=== PATIENT | female | born 1945 ===

== ENCOUNTER 2021-08-21 14:05 | Emergency (ER) | payer OTHER ==
--- OUTSIDE RECORDS SUMMARY | 2021-08-21 14:07 | XMS REPORT | Continuity of Care Document ---
:1945 Author Organization [facility] t Address [address] [place] [address] Care Team Providers Name Role Phone Quique MORA JR Primary Care Physician Unavailable Quique Fay Attending Clinician Unavailable Aram Iniguez Attending Clinician Unavailable JENNIFER Attending Clinician Unavailable Mehran_BEV Attending Clinician Unavailable Chevy TAFOYA Attending Clinician Unavailable Aram Iniguez Admitting Clinician Unavailable Jessica Admitting Clinician Unavailable Quique Fay Admitting Clinician Unavailable Payers Payer Name Policy Type Policy Number Effective Date Expiration Date [facility] [id number] [facility] (MEDICARE REPLACEMENT/ADVANTAGE - PPO) Problems This patient has no known problems. Allergies, Adverse Reactions, Alerts Allergy Allergy Status Severity Reaction(s) Onset Inactive Treating Comm ents Source Name Type Date Date Clinician No Known DA Active U 2020-0 [facility]ie 04-08 Clear s 00:00: Morales 00 [facility] No Known DA Active U 2020-0 [facility] Allergie 04-08 [facility] s 00:00: d 00 [facility] NO KNOWN Drug Active Univers ALLERGIE Class ity of S [facility] Medications This patient has no known medications. Procedures This patient has no known procedures. Encounters Start End Encounter Admission Attending Care Care Encounter Source Date/Time Date/Time Type Type Clinicians Facility Department ID 2021-03-25 Inpatient EL Fay, HCAMN 3DAY [id number] [facility] 11:30:[id number] [facility] 2019-04-12 Inpatient EL Hira, HCAMN [facility] [id number] [facility] 10:30:[address] [facility] 2019-04-08 Inpatient Hira, HCAMN HCAMN [id number] [facility] 10:30:[id number] [facility] 2021-09-10 2021-09-10 Outpatient Henry RODRIGUEZ [facility] [id number] Univers 08:30:00 08:30:00 DESMOND Bangura705 [facility] 2021-07-26 2021-07-26 Outpatient Moore_W_AH VFP VFP [id number] [facility] 04:15:00 04:15:00 [id number] [facility] 2021-07-03 2021-07-03 Outpatient Moore_W_AH VFP VFP [id number] [facility]202 [facility] 12:31:00 12:31:00 [id number] [facility] Practic e 2021-03-26 2021-03-28 Inpatient EL Fay, HCAMN 3DAY [id number] [facility] 06:58:00 12:12:00 Tobin [id number] [facility] 2021-03-26 2021-03-28 Inpatient EL Fay, HCAMN 3DAY [id number] [facility] 06:58:00 12:12:00 Tobin Ybarra [facility] 2021-03-27 2021-03-27 Outpatient Fay, HCACL LABO [id number] [facility] 01:06:00 01:06:00 Tobin [id number] [facility] 2020-05-08 2020-05-08 Outpatient Henry TAFOYA [facility] [id number] Univers 11:50:00 11:50:00 CATERINA [facility] 2020-04-17 2020-04-17 Outpatient Henry TAFOYA [facility] [id number] Univers 11:00:00 14:07:07 CATERINA [facility] 2020-04-17 2020-04-17 Outpatient [facility] [id number] Univers 11:00:00 11:00:[id number] [facility] Results Test Description Test Time Test Comments Results Result Comments Source SURGICAL 2021-04-08 12:13:00 Test Item Value Reference Range Interpretation Commquique brennan SURGICAL RUN (test DATE: 04/08/21 [place] - Lab PAGE 1 RUN code = TIME: 1213 Specimen Inquiry RUN USER: INTERFACE SR) PATRICIA ENT: RUTHANN MURRELL LOC: Amelia4WW U #: [id number] AGE/SX: 75/F ROOM: [facility] RE03/26/21REG DR: Tobin Fay Jr, MD : [birth year] BED: 1 DIS: 03/28/21 STATUS: DIS Carie TLOC: SPEC #: [id number] COMPUTER NETWORKING INSTRUCTOR ADJUNCT: 03/27/21-1053 STATUS: JUAN JOSE TILLEY #: [id number] MARTIR: - SUBM DR: Tobin Fay Jr, MD ENTERED: 03/27/21 SP TYPE: SURGICAL OTHR DR: Self Referred Lonnie Lyons Terry A MDORD ERED: GM LEVEL 3, GM LEVEL 4 COPIES TO: Self Referred Tobin Fay Jr, MD [address] [place], [facility]. [address] 711 [facility] [address] [place] [address] [email or web address] [place] [address] [place] [address] [place] [address] PROCEDURES: GM LEVEL 3 (03/27/21) GM LEVEL 4 (03/27/21 ) TISSUES: A. FEMUR - LEFT FEMORAL HEAD FINAL DIAGNOSIS Bone, left femoral head, excision: Degenerative changes, papillary synovial hyperplasia. GROSS DE SCRIPTION GROSS EXAMINATION: Received is a femoral head measuring 4.3 x 4.3 x 4.1 cm. The spe cimenis submitted after decal. Technical component performed [facility],[address] [place] [id number], [place] [address] Unless gross only, the diagno sis is based upon microscopic examination.Immunohistochemi stry: This test was developed and its performance characteristics CONTINUED ON NEXT PAGE RUN DATE: 04/08/21 [facility] - Lab PAGE 2 RUN TIME: 1213 Specimen Inquiry RUN USER: INTERFACE SPEC #: [id number] PATIENT: RUTHANN MURRELL #[id number] (Continued) ------- GROSS DESCRIP TION (Continued) determined by this laboratory. It has not been approved nor does it ne ed approvalby the [place] FDA. Appropriate positive and negative controls are reviewed and judgedto be acceptable. This laboratory is certified under the Clinical Laboratory ImprovementAmendm ents (CLIA-88) as qualified to perform high complexity clinical laboratory testing. ---- Signed SIGNATURE ON Shira Herbert MD 04/08/21 1213 END OF REPORT [id number] 10:18:00 Test Item Value Reference Range Interpretation Comments GLUBED (test code = GLUBED) 137 mg/dL 70-110 H [id number] 10:17:00 Test Item Value Reference Range Interpretation Comments GLUBED (test code = GLUBED) 120 mg/dL 70-110 H [id number] 10:14:00 Test Item Value Reference Range Interpretation Comments GLUBED (test code = GLUBED) 158 mg/dL 70-110 H [id number] 07:12:00 Test Item Value Reference Range Interpretation Comments GLUBED (test code = GLUBED) 113 mg/dL 70-110 H CBC W/AUTO [id number] 06:49:00 Test Item Value Reference Range Interpretation Comments WHITE BLOOD CELL (test code = 8.4 K/mm3 4.5-11.0 N WBC) RED BLOOD CELL (test code = 3.27 M/mm3 3.80-5.20 L RBC) HEMOGLOBIN (test code = HGB) 10.2 gm/dL 12.0-16.0 L HEMATOCRIT (test code = HCT) 33.2 % 36.0-48.0 L MEAN CELL VOLUME (test code = 101.5 UM3 82.0-99.0 H MCV) MEAN CELL HGB (test code = MCH) 31.2 UUG 25.5-32.5 N MEAN CELL HGB CONCETRATION 30.7 gm/dL 29.0-35.5 N (test code = MCHC) RED CELL DISTRIBUTION WIDTH 13.4 % 11.5-15.0 N (test code = RDW) RED CELL DISTRIBUTION WIDTH SD 50.3 fL 34.8-50.2 H (test code = RDW-SD) PLATELET COUNT (test code = 180 K/mm3 150-400 N PLT) MEAN PLATELET VOLUME (test code 11.1 fl 7.4-10.4 H = MPV) NEUTROPHIL % (test code = NT%) 62.4 % 49.0-76.0 N IMMATURE GRANULOCYTE % (test 0.2 % 0.0-0.4 N code = IG%) LYMPHOCYTE % (test code = LY%) 25.5 % 23.0-38.0 N MONOCYTE % (test code = MO%) 9.0 % 1.0-10.0 N EOSINOPHIL % (test code = EO%) 2.7 % 1.0-5.0 N BASOPHIL % (test code = BA%) 0.2 % 0.0-1.0 N NUCLEATED RBC % (test code = 0.0 % 0.0-0.1 N NRBC%) NEUTROPHIL # (test code = NT#) 5.2 K/mm3 2.4-6.3 N IMMATURE GRANULOCYTE # (test 0.02 x10 3/uL 0.00-0.07 N code = IG#) LYMPHOCYTE # (test code = LY#) 2.1 K/mm3 1.2-4.0 N MONOCYTE # (test code = MO#) 0.8 K/mm3 0.0-0.6 H EOSINOPHIL # (test code = EO#) 0.2 K/MM3 0.0-0.7 N BASOPHIL # (test code = BA#) 0.0 K/mm3 0.0-0.2 N NUCLEATED RBC # (test code = 0.00 X10 3uL 0.00-0.01 N NRBC#) [id number] 21:01:00 Test Item Value Reference Range Interpretation Comments GLUBED (test code = GLUBED) 124 mg/dL 70-110 H CBC W/AUTO [id number] 06:49:00 Test Item Value Reference Range Interpretation Comments WHITE BLOOD CELL (test code = 9.8 K/mm3 4.5-11.0 N WBC) RED BLOOD CELL (test code = 3.26 M/mm3 3.80-5.20 L RBC) HEMOGLOBIN (test code = HGB) 9.9 gm/dL 12.0-16.0 L HEMATOCRIT (test code = HCT) 31.9 % 36.0-48.0 L MEAN CELL VOLUME (test code = 97.9 UM3 82.0-99.0 N MCV) MEAN CELL HGB (test code = MCH) 30.4 UUG 25.5-32.5 N MEAN CELL HGB CONCETRATION 31.0 gm/dL 29.0-35.5 N (test code = MCHC) RED CELL DISTRIBUTION WIDTH 13.4 % 11.5-15.0 N (test code = RDW) RED CELL DISTRIBUTION WIDTH SD 48.0 fL 34.8-50.2 N (test code = RDW-SD) PLATELET COUNT (test code = 176 K/mm3 150-400 N PLT) MEAN PLATELET VOLUME (test code 11.3 fl 7.4-10.4 H = MPV) NEUTROPHIL % (test code = NT%) 74.3 % 49.0-76.0 N IMMATURE GRANULOCYTE % (test 0.6 % 0.0-0.4 H code = IG%) LYMPHOCYTE % (test code = LY%) 13.4 % 23.0-38.0 L MONOCYTE % (test code = MO%) 11.4 % 1.0-10.0 H EOSINOPHIL % (test code = EO%) 0.1 % 1.0-5.0 L BASOPHIL % (test code = BA%) 0.2 % 0.0-1.0 N NUCLEATED RBC % (test code = 0.0 % 0.0-0.1 N NRBC%) NEUTROPHIL # (test code = NT#) 7.3 K/mm3 2.4-6.3 H IMMATURE GRANULOCYTE # (test 0.06 x10 3/uL 0.00-0.07 N code = IG#) LYMPHOCYTE # (test code = LY#) 1.3 K/mm3 1.2-4.0 N MONOCYTE # (test code = MO#) 1.1 K/mm3 0.0-0.6 H EOSINOPHIL # (test code = EO#) 0.0 K/MM3 0.0-0.7 N BASOPHIL # (test code = BA#) 0.0 K/mm3 0.0-0.2 N NUCLEATED RBC # (test code = 0.00 X10 3uL 0.00-0.01 N NRBC#) BASIC METABOLIC [id number] 06:37:00 Test Item Value Reference Range Interpretation Comments SODIUM (test code = NA) 138 mmol/l 134.0-147.0 N POTASSIUM (test code = K) 3.8 mmol/L 3.6-5.2 N CHLORIDE (test code = CL) 102 mmol/l 98.0-107.0 N CARBON DIOXIDE (test code = CO2) 32.3 mmol/l 21.0-33.0 N ANION GAP (test code = GAP) 7.5 0-20 N GLUCOSE (test code = GLU) 119 mg/dl 70.0-110.0 H BLOOD UREA NITROGEN (test code = 20 mg/dl 7.0-18.0 H BUN) CREATININE (test code = CREAT) 0.89 mg/dL 0.60-1.30 N GFR NON BLACK (test code = 66 mL/min 70-80 L GFRNONBLACK) GFR BLACK (test code = GFRBLACK) 80 mL/min 85-97 L CALCIUM (test code = CA) 7.9 mg/dl 8.0-10.5 L [id number] 20:55:00 Test Item Value Reference Range Interpretation Comments GLUBED (test code = GLUBED) 189 mg/dL 70-110 H [id number] 16:57:00 Test Item Value Reference Range Interpretation Comments GLUBED (test code = GLUBED) 152 mg/dL 70-110 H [id number] 13:49:00 Test Item Value Reference Range Interpretation Comments GLUBED (test code = GLUBED) 258 mg/dL 70-110 H [id number] 13:45:00 Test Item Value Reference Range Interpretation Comments GLUBED (test code = GLUBED) 161 mg/dL 70-110 H - XR PELVIS 1/2 [id number] 12:43:00 [facility] : 1945 Sex: F FAX: Tobin Chaves Jr [phone] [place]: St: [facility] FAX: Doroteo Trevizo MD [phone] Name: HANDYRUTHANN [facility] : 1945 Age/S: 75/F [address] [facility] Unit #: [id number] Loc: E.454 [place], [place]: [place] [address] Acct: [id number] Dis Date: Status: ADM IN PHONE#: [phone] Exam Date: 03/26/2021 1233 FAX #: [phone] Reason: Post op ANGELES EXAMS: CPT CODE: [id number] XR PELVIS 1/2 VIEWS 05508 EXAM: - XR PELVIS 1/2 VIEWS CLINICAL HISTORY: Post op ANGELES COMPARISON: Pelvic radiographs 03/26/2021, 03/25/2021 TECHNIQUE: Frontal views of the pelvis. LOCATION: U19 FINDINGS/ IMPRESSION: Interval left totalhip arthroplasty with minimal medial cortical breakthrough of the acetabular screw. Right total hip arthroplasty again noted and appears grossly unchanged. Normal marrow density. The sacral arcuate lines appear intact. There is mild degenerative changes of the lower lumbar spine. Expected postsurgical changes noted surrounding the left hip including soft tissueswelling and minimal subcutaneous emphysema. at 1243 Reported and signed by: Elmer Marrero M.D. CC: Tobin Fay Jr, MD; Doroteo Iniguez MD Technologist: ANN MARIE RAYMOND Trnscrd Date/Time/By: 03/26/2021 (6239) : By: [email or web address] PAGE 1 Signed Report FAX: Tobin Chaves EJhenry [phone] [place]: St: [facility] FAX: Doroteo Gregg MD [phone] Name: RUTHANN MURRELL [facility] : 1945 Age/S: 75/F [address] [facility] Unit #: [id number] Loc: E.[address] [place], [place]: [place] [address] Acct: [id number] Dis Date: Status: ADM IN PHONE #: [phone] Exam Date: 03/26/2021 1233 FAX #: [phone] Reason: Post op ANGELES EXAMS: CPT CODE: [id number] XR PELVIS 1/2 VIEWS 12413 <Continued> Orig Print D/T: S: 03/26/2021 (9712) PAGE 2 Signed Report- XR PELVIS 1/2 [id number] 11:32:00 [facility] : 1945 Sex: F FAX: Tobin Chaves Jr [phone] [place]: St: ADM FAX: Doroteo Trevizo MD [phone] Name: RUTHANN MURRELL [facility] : 1945 Age/S: 75/F [address] [facility] Unit #: [id number] Loc: [address] Phys: [place] [address] Acct: [id number] Dis Date: Status: ADM IN PHONE#: [phone] Exam Date: 03/26/2021 1104 FAX #: [phone] Reason: INTRA OP ANGELES EXAMS: CPT CODE: [id number] XR PELVIS 1/2 VIEWS 79104 EXAM: - XR PELVIS 1/2 VIEWS CLINICAL HISTORY: INTRA OP ANGELES COMPARISON: Pelvic radiographs 04/12/2019 TECHNIQUE: Intraoperative AP view of the pelvis LOCATION: U19 FINDINGS/ IMPRESSION: Intraoperative AP view demonstrates interval left hip total arthroplasty, which appears well- positioned. There is minimal medial cortical breakthrough of the acetabular screw. Otherwise no gross disruption of the bony pelvic rim. Expected post surgical changes including soft tissue swelling and minimal subcutaneous emphysema noted surrounding the left hip joint. at 1132 Reported and signed by: Elmer Marrero M.D. CC: Tobin Fay Jr, MD; Drooteo Iniguez MD Technologist: ANN MARIE RAYMOND Trnnjrd Date/Time/By: 03/26/2021 (8349) : By: [email or web address] PAGE 1 Signed Report FAX: Tobin Chaves Jr [phone] [place]: St: ADM FAX: Doroteo Gregg MD [phone] Name: RUTHANN MURRELL [facility] : 1945 Age/S: 75/F[address] [facility] Unit #: [id number] Loc: [address] Phys: [place] [address] Acct: [id number] Dis Date: Status: ADM IN PHONE #: [phone] Exam Date: 03/26/2021 1104 FAX #: [phone] Reason: INTRA OP ANGELES EXAMS: CPT CODE: [id number] XR PELVIS 1/2 VIEWS 45437 <Continued> Orig Print D/T: S: 03/26/2021 (5934) PAGE 2 Signed ReportURINALYSIS [id number] 07:24:00 Test Item Value Reference Range Interpretation Comments UA COLOR (test code = YELLOW COLU) UA APPEARANCE (test CLEAR code = APPU) UA GLUCOSE DIPSTICK NORMAL mg/dl NORMAL (test code = DGLUU) UA BILIRUBIN DIPSTICK NEGATIVE mg/dL NEGATIVE (test code = BILU) UA KETONE DIPSTICK NEGATIVE mg/dl NEGATIVE (test code = KETU) UA SPECIFIC GRAVITY 1.025 1.000-1.030 (test code = SGU) UA BLOOD DIPSTICK 10 Burton/micL NEGATIVE A (test code = MAUREEN) Burton/micL UA PH DIPSTICK (test 5.0 5.0-9.0 code = JOSUE) UA PROTEIN DIPSTICK 30 mg/dl NEGATIVE A (test code = PROU) UA UROBILINIOGEN 1.0 mg/dl mg/dl NORMAL A DIPSTICK (test code = URO) UA NITRITE DIPSTICK NEGATIVE NEGATIVE (test code = RICHARD) UA LEUKOCYTE ESTERASE 100 Reji/micL NEGATIVE A DIPSTICK (test code = Reji/micL LEUU) UA WBC (test code = 3-5 WBC/HPF NONE WBCU) UA RBC (test code = 0-2 RBC/HPF 0-3 RBCU) UA EPITHELIAL CELLS 5-10 EPI/HPF 0-3 A (test code = EPIU) UA BACTERIA (test MANY NONE A code = BACU) UA HYALINE CAST (test 0-2 /LPF See_Comment [Auto mated code = HYALU) message] The system which generated this result transmit kurt reference range : <1/LPF. The reference range was not used to interpret this result as normal/abnormal . COMPREHENSIVE METABOLIC [id number] 12:58:00 Test Item Value Reference Range Interpretation Comments SODIUM (test code = NA) 139 mmol/l 134.0-147.0 N POTASSIUM (test code = K) 3.3 mmol/L 3.6-5.2 L CHLORIDE (test code = CL) 100 mmol/l 98.0-107.0 N CARBON DIOXIDE (test code = CO2) 33.1 mmol/l 21.0-33.0 H ANION GAP (test code = GAP) 9.2 0-20 N GLUCOSE (test code = GLU) 131 mg/dl 70.0-110.0 H BLOOD UREA NITROGEN (test code = 13 mg/dl 7.0-18.0 N BUN) CREATININE (test code = CREAT) 0.73 mg/dL 0.60-1.30 N GFR NON BLACK (test code = 83 mL/min 70-80 H GFRNONBLACK) GFR BLACK (test code = GFRBLACK) 100 mL/min 85-97 H TOTAL PROTEIN (test code = PROT) 7.2 gm/dL 6.4-8.2 N ALBUMIN (test code = ALB) 3.4 gm/dl 3.2-4.7 N CALCIUM (test code = CA) 9.4 mg/dl 8.0-10.5 N BILIRUBIN TOTAL (test code = 0.4 mg/dl 0.0-1.0 N BILT) SGOT/AST (test code = AST) 11 Units/L 15-37 L SGPT/ALT (test code = ALT) 22 Units/L 12.0-78.0 N ALKALINE PHOSPHATASE TOTAL (test 83 Units/L 50.0-136.0 N code = ALKP) COVID 19 Asymptomatic IH [id number] 12:52:00 Test Item Value Reference Range Interpretation Comments COVID 19 NEGATIVE NEGATIVE Negative result s should be Asymptomatic IH AG treated a s presumptive and (test code = ifinconsistent with COVNONPUIAG) clinical signs and symptoms, or ne cessaryfor patient managem ent, should be tested with an alternativemole cular assay. Negative results do not preclude QDIC-PtJ-9qhkoa tion and should not be u sed as the sole basis forp atient management deci sions. Negative result s should beconsidered in the context of a pa tient's recent exposure s,history, presence of cli nical signs and symptoms consistentwith COVID-19. PROTHROMBIN [id number] 12:40:00 Test Item Value Reference Range Interpretation Comments PROTHROMBIN TIME 11.5 SECONDS 9.9-12.8 N PATIENT (test code = PTP) INTERNATIONAL NORMAL 1.0 0.89-1.14 N THE INR IS TO BE USED RATIO (test code = ONLY FOR MONITORING INR) ORAL ANTICOAGULANTTH ERAPY. THE FOLLOWING A RE SUGGESTED RANGE S FROM [facility] LEGE OF CHEST PHYSICIANS:TRISTAN CATION INR VALUEPROPHYLAXI S OF VENOUS THROMBOS IS (ORTHOPEDIC KANCHAN ELEANOR) 2.0 - 3.0PROP HYLAXIS OF VENOUS THROM BOSIS (OTHER THAN HIG H-RISK SURGERY) 2.0 - 3.0TRE ATMENT OF DEEP VEIN THROMBOSIS OR PULMONARY EMBOL ISM 2.0 - 3.0PREV ENTION OF SYSTEMIC EMB OLISM TISSUE HEART VA LVES 2.0 - 3.0 AC [place] BAND MYOCARDIAL INFA RCTION (TO PREVENT SYSTEMIC EMBOLI SM) 2.0 - 3.0 ACUTE MYOCARDIA L INFARCTION (TO PREVENT RECURRE NT INFARCT) 2.5 - 3.0 VALV ULAR HEART DISEASE 2.0 - 3.0 ATRIAL FIBRILATION 2.0 - 3.0BILEAFLET MECHANICAL VALV E IN AORTIC POSITION 2.0 - 3.0MECHAN ICAL PROSTHETIC VALV ES (HIGH RISK) 2.5 - 3.5PRESEN CE OF LUPUS ANTICOAGU LANT OR ANTIPHOSPHOLIP ID ANTIBODIES 2.5 - 3 .5 CBC W/AUTO [id number] 12:35:00 Test Item Value Reference Range Interpretation Comments WHITE BLOOD CELL (test code = 5.6 K/mm3 4.5-11.0 N WBC) RED BLOOD CELL (test code = 4.38 M/mm3 3.80-5.20 N RBC) HEMOGLOBIN (test code = HGB) 13.6 gm/dL 12.0-16.0 N HEMATOCRIT (test code = HCT) 42.2 % 36.0-48.0 N MEAN CELL VOLUME (test code = 96.3 UM3 82.0-99.0 N MCV) MEAN CELL HGB (test code = MCH) 31.1 UUG 25.5-32.5 N MEAN CELL HGB CONCETRATION 32.2 gm/dL 29.0-35.5 N (test code = MCHC) RED CELL DISTRIBUTION WIDTH 13.2 % 11.5-15.0 N (test code = RDW) RED CELL DISTRIBUTION WIDTH SD 46.7 fL 34.8-50.2 N (test code = RDW-SD) PLATELET COUNT (test code = 237 K/mm3 150-400 N PLT) MEAN PLATELET VOLUME (test code 10.8 fl 7.4-10.4 H = MPV) NEUTROPHIL % (test code = NT%) 51.3 % 49.0-76.0 N IMMATURE GRANULOCYTE % (test 0.2 % 0.0-0.4 N code = IG%) LYMPHOCYTE % (test code = LY%) 33.6 % 23.0-38.0 N MONOCYTE % (test code = MO%) 9.2 % 1.0-10.0 N EOSINOPHIL % (test code = EO%) 5.2 % 1.0-5.0 H BASOPHIL % (test code = BA%) 0.5 % 0.0-1.0 N NUCLEATED RBC % (test code = 0.0 % 0.0-0.1 N NRBC%) NEUTROPHIL # (test code = NT#) 2.9 K/mm3 2.4-6.3 N IMMATURE GRANULOCYTE # (test 0.01 x10 3/uL 0.00-0.07 N code = IG#) LYMPHOCYTE # (test code = LY#) 1.9 K/mm3 1.2-4.0 N MONOCYTE # (test code = MO#) 0.5 K/mm3 0.0-0.6 N EOSINOPHIL # (test code = EO#) 0.3 K/MM3 0.0-0.7 N BASOPHIL # (test code = BA#) 0.0 K/mm3 0.0-0.2 N NUCLEATED RBC # (test code = 0.00 X10 3uL 0.00-0.01 N NRBC#) - XR CHEST 2 [id number] 12:13:00 [facility] : 1945 Sex: F FAX: Tobin Chaves Jr [phone] [place]: St: PRE FAX: Doroteo Trevizo MD [phone] Name: RUTHANN MURRELL [facility] : 1945 Age/S: 75/F [address] [facility] MST Unit #: [id number] Loc: AmeliaQuique [place], [place]: [place] [address] Acct: [id number] Dis Date: Status: PRE IN PHONE#: [phone] Exam Date: 03/25/2021 1205 FAX #: [phone] Reason: PREOP EXAMS: CPT CODE: [id number] XR CHEST 2 V 07831 EXAM: - XR CHEST 2 V CLINICAL HISTORY: PREOP TECHNIQUE: Frontal and Lateral views. COMPARISON: None available. LOCATION: U19 FINDINGS: The trachea appears normal. The mediastinum and cardiac silhouette are withinthe upper limits for normal size. The lungs are clear. No pleural effusions. Limited evaluation of soft tissues and osseous structures is grossly unremarkable. IMPRESSION: No acute cardiopulmonary process. at 1213 Reported and signed by: Elmer Marrero M.D. CC: Tobin Fay Jr, MD; Doroteo Iniguez MD Technologist: TOM FLORES Trnscrd Date/Time/By: 03/25/2021 (1213) : By: [email or web address] PAGE 1 Signed Report FAX: Tobin Chaves Jr [phone] [place]: St: PRE FAX: Doroteo Gregg MD [phone] Name: RUTHANN MURRELL [facility] : 1945 Age[facility]S: 75[facility] [address] [id number] Loc: ALEC [place], [place]: [place] [address] Acct: [id number] Dis Date: Status: PRE IN PHONE #: [phone] Exam Date: 03/25/2021 1205 FAX #: [phone] Reason: PREOP EXAMS: CPT CODE: [id number] XR CHEST 2 V 94665 <Continued> Orig Print D/T: S: 03/25/2021 (8293) PAGE 2 Signed ReportSURGICAL [id number] 13:10:00 RUN DATE: 04/15/19 [facility] PAGE 1 RUN TIME: 1310 Specimen Inquiry RUN USER: INTERFACE PATIENT: RUTHANN MURRELL LOC: CON U #: [id number] AGE/SX: 73/F ROOM: [facility] RE04/12/19REG DR: Doroteo Iniguez MD : [id number] BED: 1 DIS: 04/14/19 STATUS: DIS Carie TLOC: SPEC #: [id number] RECD: 04/12/19 STATUS: JUAN JOSE TILLEY #: [id number] MARTIR: 04/12/19- SUBM DR: Doroteo Iniguez MD ENTERED: 04/12/19 SP TYPE: SURG SPEC OTHR DR: Self Referred Ilan Good MD Undefined ProviderORDERED: BONE DECAL, GM LEVEL 3, REQUEST COPIES TO: Self Referred Ilan Good MD [address] [place], [place] [address] [email or web address] Doroteo Iniguez MD [address] [phone] Undefined Provider PROCEDURES: BONE DECAL (Incomplete) GM LEVEL 3 (04/15/19) REQUEST (04/12/19) TISSUES: HEAD, NOS - RIGHT FEMORAL HEAD FINAL DIAGNOSIS RIGHT FEMORAL HEAD: CHRONIC ARTHRITIS. NO BONE MARROW PATHOLOGY. CPT CODE: [id number], 66572 MACROSCOPIC Received in formalin labeled "right femoral head" consists ofa 4.5 x 4.5 x 4.3 cm femoralhead with a ragged cartilagenous surface. The cut surface is murray with oc casional cyst. Arepresentative section is submitted into a single cassette following decalcification. CONTINUED ON NEXT PAGE RUN DATE: 04/15/19 [facility] - Lab PAGE 2 RUN TIME: 1310 Specimen Inquiry RUN USER: INTERFACE SPEC #: [id number] PATIENT: RUTHANN MURRELL #[id number] (Continued) MICROSCOPICSEE DIAGNOSIS Signed SIGNATURE ON FILE Gracia Nath H. 04/15/19 1310 END OF REPORT GLUBED 2019-04-14 12:46:00 Test Item Value Reference Range Interpretation Comments GLUBED (test code = GLUBED) 137 mg/dL 70-110 H [id number] 12:25:00 Test Item Value Reference Range Interpretation Comments GLUBED (test code = GLUBED) 102 mg/dL 70-110 N [id number] 08:24:00 Test Item Value Reference Range Interpretation Comments GLUBED (test code = GLUBED) 112 mg/dL 70-110 H CBC W/AUTO [id number] 05:15:00 Test Item Value Reference Range Interpretation Comments WHITE BLOOD CELL (test code = 6.4 K/mm3 4.5-11.0 N WBC) RED BLOOD CELL (test code = 3.33 M/mm3 3.80-5.20 L RBC) HEMOGLOBIN (test code = HGB) 10.3 gm/dL 12.0-16.0 L HEMATOCRIT (test code = HCT) 32.0 % 36.0-48.0 L MEAN CELL VOLUME (test code = 96.1 UM3 82.0-99.0 N MCV) MEAN CELL HGB (test code = MCH) 30.9 UUG 25.5-32.5 N MEAN CELL HGB CONCETRATION 32.2 gm/dL 29.0-35.5 N (test code = MCHC) RED CELL DISTRIBUTION WIDTH 12.2 % 11.5-15.0 N (test code = RDW) RED CELL DISTRIBUTION WIDTH SD 43.0 fL 34.8-50.2 N (test code = RDW-SD) PLATELET COUNT (test code = 174 K/mm3 150-400 N PLT) MEAN PLATELET VOLUME (test code 11.0 fl 7.4-10.4 H = MPV) NEUTROPHIL % (test code = NT%) 62.0 % 49.0-76.0 N IMMATURE GRANULOCYTE % (test 0.2 % 0.0-0.4 N code = IG%) LYMPHOCYTE % (test code = LY%) 23.6 % 23.0-38.0 N MONOCYTE % (test code = MO%) 11.7 % 1.0-10.0 H EOSINOPHIL % (test code = EO%) 2.2 % 1.0-5.0 N BASOPHIL % (test code = BA%) 0.3 % 0.0-1.0 N NEUTROPHIL # (test code = NT#) 4.0 K/mm3 2.4-6.3 N IMMATURE GRANULOCYTE # (test 0.01 x10 3/uL 0.00-0.07 N code = IG#) LYMPHOCYTE # (test code = LY#) 1.5 K/mm3 1.2-4.0 N MONOCYTE # (test code = MO#) 0.8 K/mm3 0.0-0.6 H EOSINOPHIL # (test code = EO#) 0.1 K/MM3 0.0-0.7 N BASOPHIL # (test code = BA#) 0.0 K/mm3 0.0-0.2 N COMPREHENSIVE METABOLIC [id number] 05:01:00 Test Item Value Reference Range Interpretation Comments SODIUM (test code = NA) 141 mmol/l 134.0-147.0 N POTASSIUM (test code = K) 3.5 mmol/L 3.6-5.2 L CHLORIDE (test code = CL) 106 mmol/l 98.0-107.0 N CARBON DIOXIDE (test code = CO2) 31.8 mmol/l 21.0-33.0 N ANION GAP (test code = GAP) 6.7 0-20 N GLUCOSE (test code = GLU) 128 mg/dl 70.0-110.0 H BLOOD UREA NITROGEN (test code = 20 mg/dl 7.0-18.0 H BUN) CREATININE (test code = CREAT) 0.72 mg/dL 0.60-1.30 N GFR NON BLACK (test code = 84 mL/min 70-80 H GFRNONBLACK) GFR BLACK (test code = GFRBLACK) 102 mL/min 85-97 H TOTAL PROTEIN (test code = PROT) 5.8 GM/DL 6.0-8.1 L ALBUMIN (test code = ALB) 2.5 gm/dL 3.2-4.7 L CALCIUM (test code = CA) 8.4 mg/dl 8.0-10.5 N BILIRUBIN TOTAL (test code = 0.2 mg/dl 0.0-1.0 N BILT) SGOT/AST (test code = AST) 16 Units/L 15.0-37.0 N SGPT/ALT (test code = ALT) 19 Units/L 12.0-78.0 N ALKALINE PHOSPHATASE TOTAL (test 52 Units/L 50.0-136.0 N code = ALKP) [id number] 05:01:00 Test Item Value Reference Range Interpretation Comments MAGNESIUM (test code = MAG) 1.3 mg/dl 1.8-2.4 L [id number] 20:59:00 Test Item Value Reference Range Interpretation Comments GLUBED (test code = GLUBED) 130 mg/dL 70-110 H [id number] 16:40:00 Test Item Value Reference Range Interpretation Comments GLUBED (test code = GLUBED) 140 mg/dL 70-110 H [id number] 12:57:00 Test Item Value Reference Range Interpretation Comments GLUBED (test code = GLUBED) 139 mg/dL 70-110 H CBC W/AUTO [id number] 06:19:00 Test Item Value Reference Range Interpretation Comments WHITE BLOOD CELL (test code = 8.1 K/mm3 4.5-11.0 N WBC) RED BLOOD CELL (test code = 2.82 M/mm3 3.80-5.20 L RBC) HEMOGLOBIN (test code = HGB) 8.8 gm/dL 12.0-16.0 L HEMATOCRIT (test code = HCT) 27.6 % 36.0-48.0 L MEAN CELL VOLUME (test code = 97.9 UM3 82.0-99.0 MCV) MEAN CELL HGB (test code = MCH) 31.2 UUG 25.5-32.5 N MEAN CELL HGB CONCETRATION 31.9 gm/dL 29.0-35.5 N (test code = MCHC) RED CELL DISTRIBUTION WIDTH 12.3 % 11.5-15.0 N (test code = RDW) RED CELL DISTRIBUTION WIDTH SD 44.1 fL 34.8-50.2 N (test code = RDW-SD) PLATELET COUNT (test code = 138 K/mm3 150-400 L PLT) MEAN PLATELET VOLUME (test code 10.6 fl 7.4-10.4 H = MPV) NEUTROPHIL % (test code = NT%) 72.0 % 49.0-76.0 N IMMATURE GRANULOCYTE % (test 0.2 % 0.0-0.4 N code = IG%) LYMPHOCYTE % (test code = LY%) 17.0 % 23.0-38.0 L MONOCYTE % (test code = MO%) 10.5 % 1.0-10.0 H EOSINOPHIL % (test code = EO%) 0.2 % 1.0-5.0 L BASOPHIL % (test code = BA%) 0.1 % 0.0-1.0 N NEUTROPHIL # (test code = NT#) 5.8 K/mm3 2.4-6.3 N IMMATURE GRANULOCYTE # (test 0.02 x10 3/uL 0.00-0.07 N code = IG#) LYMPHOCYTE # (test code = LY#) 1.4 K/mm3 1.2-4.0 N MONOCYTE # (test code = MO#) 0.9 K/mm3 0.0-0.6 H EOSINOPHIL # (test code = EO#) 0.0 K/MM3 0.0-0.7 N BASOPHIL # (test code = BA#) 0.0 K/mm3 0.0-0.2 N [id number] 05:58:00 Test Item Value Reference Range Interpretation Comments HGBA1C% (test code = HGBA1C%) 6.3 %A1C 4.8-6.0 H ESTIMATED AVERAGE GLUCOSE (test 134 MG/DL code = EAG) BASIC METABOLIC [id number] 05:46:00 Test Item Value Reference Range Interpretation Comments SODIUM (test code = NA) 138 mmol/l 134.0-147.0 N POTASSIUM (test code = K) 3.8 mmol/L 3.6-5.2 N CHLORIDE (test code = CL) 103 mmol/l 98.0-107.0 N CARBON DIOXIDE (test code = CO2) 28.0 mmol/l 21.0-33.0 N ANION GAP (test code = GAP) 10.8 0-20 N GLUCOSE (test code = GLU) 112 mg/dl 70.0-110.0 H BLOOD UREA NITROGEN (test code = 19 mg/dl 7.0-18.0 H BUN) CREATININE (test code = CREAT) 0.88 mg/dL 0.60-1.30 N GFR NON BLACK (test code = 67 mL/min 70-80 L GFRNONBLACK) GFR BLACK (test code = GFRBLACK) 81 mL/min 85-97 L CALCIUM (test code = CA) 7.7 mg/dl 8.0-10.5 L [id number] 21:55:00 Test Item Value Reference Range Interpretation Comments GLUBED (test code = GLUBED) 136 mg/dL 70-110 H - XR PELVIS 1/2 [id number] 09:10:00 FAX: Doroteo Gregg MD [phone] [place]: St: ADM Name: RUTHANN MURRELL [facility] : 1945 Age/S: 73/F [address] [facility] Unit[facility] [id number] Loc: [address] Phys: [place] [id number] Acct: [id number] Dis Date: Status: ADM IN PHONE #: [phone] Exam Date: 04/12/201905 FAX #: [phone] Reason: Post op ANGELES EXAMS: CPT CODE: [id number] XR PELVIS 1/2 VIEWS 72076 EXAM: Pelvis 1 view LOCATION: C3 HISTORY: post- operative COMPARISON: None available time of interpretation. FINDINGS: Frontal view of the pelvis. Placement of right hip joint prosthesis. Expected postoperative subcutaneous gas and soft tissue swelling is noted. IMPRESSION: As above. at 0910 Reported and signed by: Ryan Mosley M.D. CC: Doroteo Iniguez MD Technologist: DAWIT POLO [facility] Date/Time/By: 04/12/2019 (0910) : By: DeuceHV2 PAGE 1 Signed Report FAX: Doroeto Gregg MD [phone] [place]: St: ADM Name: RUTHANN MURRELL [facility] : 1945 Age/S: 73/F [address] [facility] Unit #: [id number] Loc: [address] Phys: [place] [id number] Acct: [id number] Dis Date: Status: ADM IN PHONE #: [phone] Exam Date: 04/12/2019904 FAX #: [phone] Reason: Post op ANGELES EXAMS: CPT CODE: [id number] XR PELVIS 1/2 VIEWS 42508 <Continued> Orig Print D/T: S: 04/12/2019 (1255) PAGE 2 Signed Report- XR PELVIS 1/2 [id number] 08:25:00 FAX: Doroteo Gregg MD [phone] [place]: St: ADM Name: RUTHANN MURRELL [facility] : 1945 Age/S: 73/F [address] [facility] Unit#: [id number] Loc: [address] Phys: [place] [address] Acct: [id number] Dis Date: Status: ADM IN PHONE #: [phone] Exam Date: 04/12/2019820 FAX #: [phone] Reason: INTRA OP TOTAL RT HIP EXAMS: CPT CODE: [id number] XR PELVIS 1/2 VIEWS 15543 EXAM: - XR PELVIS 1/2 VIEWS INDICATION: INTRA OPTOTAL RT HIP LOCATION CODE: B2 COMPARISON: None available. TECHNIQUE: 1 view of the pelvis was obtained. FINDINGS: Intraoperative view of the right hip prosthesis was obtained. The prosthetic components appear well aligned and well seated in bone. Surgical changes are noted at the soft tissues. IMPRESSION: Intraoperative view of right hip prosthesis which appears well aligned and wellseated in bone. at 0825 Reported and signed by: Cristal Bray M.D. CC: Doroteo Iniguez MD Technologist: DAWIT POLO [facility] Date/Time/By: 04/12/2019 (29) : By: Luciana [email or web address] PAGE 1 Signed Report FAX: Doroteo Gregg MD [phone] [place]: St: ADM Name: RUTHANN MURRELL [facility] : 1945 Age/S: 73/F [address] [facility] Unit #: [id number] Loc: [address] Phys: [place] [address] Acct: [id number] Dis Date: Status: ADM IN PHONE #: [phone] Exam Date: 04/12/2019820 FAX #: [phone] Reason: INTRA OP TOTAL RT HIP EXAMS: CPT CODE: [id number] XR PELVIS 1/2 VIEWS 92286 <Continued> Orig Print D/T: S: 04/12/2019 (0829) PAGE 2 Signed ReportGLUBED 2019-04-12 05:53:00 Test Item Value Reference Range Interpretation Comments GLUBED (test code = GLUBED) 235 mg/dL 70-110 H COMPREHENSIVE METABOLIC [id number] 13:33:00 Test Item Value Reference Range Interpretation Comments SODIUM (test code = NA) 140 mmol/l 134.0-147.0 N POTASSIUM (test code = K) 3.5 mmol/L 3.6-5.2 L CHLORIDE (test code = CL) 99 mmol/l 98.0-107.0 N CARBON DIOXIDE (test code = CO2) 35.3 mmol/l 21.0-33.0 H ANION GAP (test code = GAP) 9.2 0-20 N GLUCOSE (test code = GLU) 99 mg/dl 70.0-110.0 N BLOOD UREA NITROGEN (test code = 11 mg/dl 7.0-18.0 N BUN) CREATININE (test code = CREAT) 0.57 mg/dL 0.60-1.30 L GFR NON BLACK (test code = 111 mL/min 70-80 H GFRNONBLACK) GFR BLACK (test code = GFRBLACK) 134 mL/min 85-97 H TOTAL PROTEIN (test code = PROT) 7.3 GM/DL 6.0-8.1 N ALBUMIN (test code = ALB) 3.4 gm/dL 3.2-4.7 N CALCIUM (test code = CA) 9.4 mg/dl 8.0-10.5 N BILIRUBIN TOTAL (test code = 0.5 mg/dl 0.0-1.0 N BILT) SGOT/AST (test code = AST) 15 Units/L 15.0-37.0 N SGPT/ALT (test code = ALT) 28 Units/L 12.0-78.0 N ALKALINE PHOSPHATASE TOTAL (test 80 Units/L 50.0-136.0 N code = ALKP) NO ROOM # AT 1121. E.LAB.AO 04/08/19 1122.- XR CHEST 2 [id number] 13:06:00 FAX: Doroteo Gregg MD [phone] [place]: St: PRE Name: RUTHANN MURRELL [facility] : 1945 Age/S: 73/F [address] [facility] Unit#: [id number] Loc: [address] Phys: [place] [address] Acct: [id number] Dis Date: Status: PRE IN PHONE #: [phone] Exam Date: 04/08/2019 1230 FAX #: [phone] Reason: PROCEDURE EXAMS: CPT CODE: [id number] XR CHEST 2 V 35849 REASON FOR EXAM: Cardiorespiratory clearance for surgery. COMPARISON: None. Chest, 2 views, frontal and lateral projection. The lungs are well-inflated and clear. Heart size is normal. Mildly tortuous, calcified aorta. No effusion or pneumothorax can be seen. Osseous structures appear to be intact. . IMPRESSION: No acute cardiopulmonary disease. Location: 9 at 1306 Reported and signed by: Bryon Hicks M.D. CC: Doroteo Iniguez MD Technologist: [facility] Date/Time/By: 04/08/2019 (9468) : By: [facility] PAGE 1 Signed Report FAX: Doroteo Gregg MD [phone] [place]: St: PRE Name: RUTHANN MURRELL [facility] : 1945 Age/S: 73/F [address] [facility] Unit #: [id number] Loc: [address] Phys: [place] [address] Acct: [id number] Dis Date: Status: PRE IN PHONE #: [phone] Exam Date: 04/08/2019 1230 FAX #: [phone] Reason: PROCEDURE EXAMS: CPT CODE: [id number] XR CHEST 2 V 95176 <Continued> Orig Print D/T: S: 04/08/2019 (1843) PAGE 2 Signed ReportPROTHROMBIN [id number] 12:16:00 Test Item Value Reference Range Interpretation Comments PROTHROMBIN TIME 12.5 SECONDS 9.9-12.8 N PATIENT (test code = PTP) INTERNATIONAL NORMAL 1.1 0.89-1.14 N THE INR IS TO BE USED RATIO (test code = ONLY FOR MONITORING INR) ORAL ANTICOAGULANTTH ERAPY. THE FOLLOWING A RE SUGGESTED RANGE S FROM [facility] LEGE OF CHEST PHYSICIANS:TRISTAN CATION INR VALUEPROPHYLAXI S OF VENOUS THROMBOS IS (ORTHOPEDIC KANCHAN ELEANOR) 2.0 - 3.0PROP HYLAXIS OF VENOUS THROM BOSIS (OTHER THAN HIG H-RISK SURGERY) 2.0 - 3.0TRE ATMENT OF DEEP VEIN THROMBOSIS OR PULMONARY EMBOL ISM 2.0 - 3.0PREV ENTION OF SYSTEMIC EMB OLISM TISSUE HEART VA LVES 2.0 - 3.0 AC [place] B[place] MYOCARDIAL INFA RCTION (TO PREVENT SYSTEMIC EMBOLI SM) 2.0 - 3.0 ACUTE MYOCARDIA L INFARCTION (TO PREVENT RECURRE NT INFARCT) 2.5 - 3.0 VALV ULAR HEART DISEASE 2.0 - 3.0 ATRIAL FIBRILATION 2.0 - 3.0BILEAFLET MECHANICAL VALV E IN AORTIC POSITION 2.0 - 3.0MECHAN ICAL PROSTHETIC VALV ES (HIGH RISK) 2.5 - 3.5PRESEN CE OF LUPUS ANTICOAGU LANT OR ANTIPHOSPHOLIP ID ANTIBODIES 2.5 - 3 .5 Is patient on anticoagulants? [facility] ROOM # AT 1124. E.LAB.AO 04/08/19 1122.CBC W/AUTO [id number] 12:11:00 Test Item Value Reference Range Interpretation Comments WHITE BLOOD CELL (test code = 5.4 K/mm3 4.5-11.0 N WBC) RED BLOOD CELL (test code = 4.62 M/mm3 3.80-5.20 N RBC) HEMOGLOBIN (test code = HGB) 14.3 gm/dL 12.0-16.0 N HEMATOCRIT (test code = HCT) 43.4 % 36.0-48.0 N MEAN CELL VOLUME (test code = 93.9 UM3 82.0-99.0 N MCV) MEAN CELL HGB (test code = MCH) 31.0 UUG 25.5-32.5 N MEAN CELL HGB CONCETRATION 32.9 gm/dL 29.0-35.5 N (test code = MCHC) RED CELL DISTRIBUTION WIDTH 12.3 % 11.5-15.0 N (test code = RDW) RED CELL DISTRIBUTION WIDTH SD 42.5 fL 34.8-50.2 N (test code = RDW-SD) PLATELET COUNT (test code = 221 K/mm3 150-400 N PLT) MEAN PLATELET VOLUME (test code 10.4 fl 7.4-10.4 N = MPV) NEUTROPHIL % (test code = NT%) 48.2 % 49.0-76.0 L IMMATURE GRANULOCYTE % (test 0.2 % 0.0-0.4 N code = IG%) LYMPHOCYTE % (test code = LY%) 38.5 % 23.0-38.0 H MONOCYTE % (test code = MO%) 9.3 % 1.0-10.0 N EOSINOPHIL % (test code = EO%) 3.4 % 1.0-5.0 N BASOPHIL % (test code = BA%) 0.4 % 0.0-1.0 N NEUTROPHIL # (test code = NT#) 2.6 K/mm3 2.4-6.3 N IMMATURE GRANULOCYTE # (test 0.01 x10 3/uL 0.00-0.07 N code = IG#) LYMPHOCYTE # (test code = LY#) 2.1 K/mm3 1.2-4.0 N MONOCYTE # (test code = MO#) 0.5 K/mm3 0.0-0.6 N EOSINOPHIL # (test code = EO#) 0.2 K/MM3 0.0-0.7 N BASOPHIL # (test code = BA#) 0.0 K/mm3 0.0-0.2 N NO ROOM # AT E.LAB. 04/08/19 1122.
[2021-08-21] MEDS ORDERED: METHYLPREDNISOLONE 125 MG INJ ONE (16:08)
[2021-08-21] MEDS ORDERED: ACETAMINOPHEN 500 MG TAB ONE (16:08)
[2021-08-21] MEDS ORDERED: LEVALBUTEROL 1.25 MG/3 ML NEB ONE ×2 (16:09→21:35)
--- NOTE | 2021-08-21 16:09 | RAD REPORT ---
EXAM DESCRIPTION: RAD - Chest Single View - 08/21/2021 4:02 pm CLINICAL HISTORY: SOB COMPARISON: Abdomen 1 View (KUB) dated 04/02/2016; ABDOMEN 1 VIEW KUB dated 03/26/2015; ABDOMEN 1 VIEW KUB dated 03/15/2014; ABDOMEN 1 VIEW KUB dated 01/05/2014 FINDINGS: Lines: None. Lungs: No evidence of edema or pneumonia. Pleural: No significant pleural effusions or pneumothorax. Cardiac: Mild cardiomegaly. Bones: No acute fractures. Other: IMPRESSION: No acute cardiopulmonary disease.
[2021-08-21 16:22] LABS: Absolute Lymphocytes (CBC) 0.8 K/uL (0.7-4.9); Hematocrit 35.7 % (36.0-45.0); Lymphocytes % 5.6 % (15.3-44.8); RBC Red Blood Cell Count 4.35 M/uL (3.86-4.86)
[2021-08-21 16:24] LABS: Protime INR 1.36
[2021-08-21 16:27] LABS: Urine Blood 3+ (Negative); Urine Glucose Negative (Negative); Urine Protein 2+ (Negative); Urine Specific Gravity >=1.030 (1.005-1.030)
[2021-08-21 16:31] LABS: Albumin 3.2 g/dL (3.4-5.0); Bilirubin Total 0.8 mg/dL (0.2-1.0); Potassium 3.1 mmol/L (3.5-5.1); Protein, Total 7.9 g/dL (6.4-8.2)
[2021-08-21] MEDS ORDERED: POTASSIUM 25 MEQ EFFERV TAB ONE (19:29)
--- NOTE | 2021-08-21 19:56 | RAD REPORT ---
EXAM DESCRIPTION: RAD - Chest Single View - 08/21/2021 7:36 pm CLINICAL HISTORY: COUGH COMPARISON: Chest Single View dated 08/21/2021; Abdomen 1 View (KUB) dated 04/02/2016; ABDOMEN 1 VIEW KUB dated 03/26/2015; ABDOMEN 1 VIEW KUB dated 03/15/2014 FINDINGS: Lines: None. Lungs: No evidence of edema or pneumonia. Pleural: No significant pleural effusions or pneumothorax. Cardiac: Cardiomegaly. Bones: No acute fractures. Other: IMPRESSION: No acute cardiopulmonary disease.
--- NOTE | 2021-08-21 20:01 | RAD REPORT ---
EXAM DESCRIPTION: CT - Chest For Pe Angio - 08/21/2021 7:49 pm CLINICAL HISTORY: chest pain COMPARISON: No comparisons FINDINGS: Chest Wall: No suspicious thyroid nodules or pathologic lymphadenopathy. Lungs: 4 mm left upper lobe pulmonary nodule on image 31, series 402. 3 mm left upper lobe pulmonary nodule on image 25 series 402. . Pleura: No significant effusions or pneumothorax. Mediastinum/mariel: No pathologic lymphadenopathy. Pulmonary arteries/Aorta: No filling defect identified. No aortic aneurysm. Heart: No significant pericardial effusion. Normal heart size. Upper abdomen: No acute abnormality. Bones: No acute abnormality. Sclerotic focus in T9 is probably a bone island. All CT scans are performed using dose optimization technique as appropriate and may include automated exposure control or mA/KV adjustment according to patient size. IMPRESSION: Negative for pulmonary embolism. No acute process. Sub 5 mm left upper lobe pulmonary nodules. If the patient is high risk for lung cancer, recommend 12 month follow-up chest CT. If not, additional follow-up is not required.
[2021-08-21] MEDS ORDERED: MORPHINE 2 MG/ML SYR ONE (21:34)
[2021-08-21] MEDS ORDERED: NA CHLORIDE 0.9% 500 ML ONE ×2 (21:43→22:50)
[2021-08-21] MEDS ORDERED: ONDANSETRON 4 MG/2 ML VIAL ONE (21:46)
[2021-08-21] MEDS ORDERED: MORPHINE 4 MG/ML SYR ONE (21:49)
--- NOTE | 2021-08-21 22:27 | RAD REPORT ---
EXAM DESCRIPTION: CTAbdomen Pelvis Wo Contrast - 08/21/2021 10:09 pm CLINICAL HISTORY: Epigastric pain COMPARISON: CTSTONE PROTOCOL dated 11/27/2013CTSTONE PROTOCOL dated 11/27/2013; Chest For Pe Angio janay ed 08/21/2021 TECHNIQUE: CT of the abdomen and pelvis was performed without contrast. All CT scans are performed using dose optimization technique as appropriate and may include automated exposure control or mA/KV adjustment according to patient size. FINDINGS: Lower chest: Question mild circumferential thickened distal esophagus which could reflect esophagitis. Liver: Low-density lesions in the right hepatic lobe have benign imaging features. Biliary: No biliary ductal dilatation. Stomach: No significant focal abnormality. Duodenum: No significant focal abnormality. Pancreas: No significant abnormality. Spleen: No significant abnormality. Adrenal: No suspicious lesions. Kidney/ureter: Left-sided hydronephrosis is present. Contrast present within both renal collecting sy stems. Stones were present on the prior CT. It is not clear if stones are present or if the findings related to contrast. Persistent left nephrogram with striations. 5 mm stone in the left distal ureter . Left-sided perinephric stranding. Indeterminate left renal lesions are noted. Retroperitoneum: No retroperitoneal adenopathy. Vascular: No aneurysm. Bowel: No significant focal abnormality. Peritoneum: No ascites or free air. Bladder: Contrast within the bladder. Reproductive: No adnexal masses. There is some apparent excreted contrast within the rectovaginal cul -de-sac based on the similar degree of density compared with the adjacent contrast within the bladder and ureter. Bones: Bilateral hip arthroplasties. Multilevel degenerative changes are present in the spine. Other: n/a IMPRESSION: Left-sided hydronephrosis secondary to a 5 mm stone in the left distal ureter. Striated appearance of the left kidney could be secondary to backflow from the hydronephrosis versus renal lety lure or pyelonephritis. Suggest correlating with urinalysis. Possible underlying lesions as well. No definite abscess. Recommend 6 week follow-up ultrasound. Small volume of excreted contrast at the rectovaginal cul-de-sac. This could be secondary to extravas ated urine as result of the degree of urinary obstruction/ hydronephrosis. No large leak is identifie d, however.
[2021-08-21 22:45] LABS: Urine Bacteria >50 /HPF (<20)
[2021-08-21 22:46] LABS: Urine RBC >50 /HPF (NONE SEEN)
[2021-08-21 22:50] LABS: Arterial Blood Carboxyhemoglob 1.2 % (0-1.5); Blood O2 Saturation 94.1 % (92-98.5)
--- NOTE | 2021-08-21 23:11 | ER ---
Nurse's Notes [facility] Name: Phyllis Montaño Age: 76 yrs Sex: Female : 1945 Arrival Date: 08/21/2021 Time: 14:06 Bed 8 Private MD: Diagnosis: Sepsis, unspecified organism;Hydronephrosis with renal and ureteral calculous obstruction Presentation: 08/21 14:03 Chief complaint: EMS states: pt from home COVID + yesterday. and increased SOB, states tw2 her symptoms are worse. she had 100 degree temperature and took Tylenol 2 hours ago. she was 94% on room air upon arrival. we got her up to 99% with 2L nc. Coronavirus screen: Client presents with at least one sign or symptom that may indicate coronavirus-19. Standard/surgical mask placed on the client. Provider contacted for isolation considerations. Client reports previous positive COVID test result. Ebola Screen: Patient denies travel to an Ebola-affected area in the 21 days before illness onset. Onset of symptoms was August 21, 2021. 14:03 Method Of Arrival: EMS: [facility] tw2 14:16 Chief complaint: Patient states: and today i am nauseous. it has been going on a while tw2 though. Initial Sepsis Screen: Does the patient meet any 2 criteria? HR > 90 bpm. No. Patient's initial sepsis screen is negative. Does the patient have a suspected source of infection? No. Patient's initial sepsis screen is negative. Risk Assessment: Do you want to hurt yourself or someone else? Patient reports no desire to harm self or others. 14:16 Acuity: JOE 3 tw2 Triage Assessment: 14:23 General: Appears in no apparent distress. well groomed, Behavior is calm, cooperative, tw2 appropriate for age. Pain: Denies pain. Respiratory: Reports shortness of breath at rest cough that is non-productive, Airway is patent Respiratory effort is even, unlabored, Respiratory pattern is regular, symmetrical, Onset: The symptoms/episode began/occurred Thursday, the patient has mild shortness of breath. Historical: - Allergies: 14:21 No Known Allergies; tw2 - Home Meds: 14:21 levothyroxine oral [Active]; Metformin Oral [Active]; tw2 - PMHx: 14:21 Hypothyroidism; hypertension; Diabetes mellitus; tw2 - PSHx: 14:21 LEFT hip replacement; tw2 - Immunization history:: Client reports receiving the 2nd dose of the Covid vaccine. - Social history:: Smoking status: Patient denies any tobacco usage or history of. Screenin:15 Abuse screen: Denies threats or abuse. Nutritional screening: No deficits noted. tw2 Tuberculosis screening: No symptoms or risk factors identified. Fall Risk Secondary diagnosis (15 points) impaired mobility, Ambulatory Aid- Crutches/Cane/Walker (15 pts). Assessment: 15:32 General: Appears in no apparent distress. comfortable, Behavior is calm, cooperative, jd3 appropriate for age. Pain: Complains of pain in back Quality of pain is described as aching. Neuro: Mulligan Agitation-Sedation Scale (RASS): 0 - Alert and Calm Level of Consciousness is awake, alert, obeys commands, Oriented to person, place, time, situation. Cardiovascular: Heart tones present Capillary refill < 3 seconds Patient's skin is warm and dry. Respiratory: Reports shortness of breath at rest cough that is dry, Airway is patent Respiratory effort is labored, Respiratory pattern is regular, symmetrical, Breath sounds with wheezes bilaterally. GI: No signs and/or symptoms were reported involving the gastrointestinal system. : No signs and/or symptoms were reported regarding the genitourinary system. EENT: No signs and/or symptoms were reported regarding the EENT system. Derm: Skin is intact, Skin is dry, Skin is normal, Skin temperature is warm. Musculoskeletal: Circulation, motion, and sensation intact. Range of motion: intact in all extremities. 16:33 Reassessment: No changes from previously documented assessment. Patient and/or family jd3 updated on plan of care and expected duration. Pain level reassessed. Patient is alert, oriented x 3, equal unlabored respirations, skin warm/dry/pink. 17:39 Reassessment: Patient appears in no apparent distress at this time. Patient and/or jd3 family updated on plan of care and expected duration. Pain level reassessed. Patient is alert, oriented x 3, equal unlabored respirations, skin warm/dry/pink. pt tolerated walking around room on room air. 97 % O2 room air. heart rate and respiratory rate noted to be elevated when walking around room. provider notified. 18:06 Reassessment: No changes from previously documented assessment. Patient and/or family jd3 updated on plan of care and expected duration. Pain level reassessed. Patient is alert, oriented x 3, equal unlabored respirations, skin warm/dry/pink. 20:55 General: Appears in no apparent distress. comfortable, Behavior is calm, cooperative. lg3 Pain: Complains of pain in back Pain currently is 2 out of 10 on a pain scale. Neuro: No deficits noted. [place] Agitation-Sedation Scale (RASS): 0 - Alert and Calm Level of Consciousness is awake, alert, obeys commands, Oriented to person, place, time, situation. Cardiovascular: No deficits noted. Capillary refill < 3 seconds Clubbing of nail beds is absent JVD is absent Patient's skin is warm and dry. Rhythm is sinus rhythm. Respiratory: No deficits noted. Airway is patent Trachea midline Respiratory effort is even, unlabored, Respiratory pattern is regular, symmetrical. GI: No deficits noted. No signs and/or symptoms were reported involving the gastrointestinal system. Abdomen is round non-distended. : No deficits noted. No signs and/or symptoms were reported regarding the genitourinary system. EENT: No deficits noted. No signs and/or symptoms were reported regarding the EENT system. Derm: No deficits noted. No signs and/or symptoms reported regarding the dermatologic system. Skin is intact, is healthy with good turgor, Skin is dry, Skin temperature is warm. Musculoskeletal: No deficits noted. No signs and/or symptoms reported regarding the musculoskeletal system. Circulation, motion, and sensation intact. Range of motion: intact in all extremities. Vital Signs: 14:16 BP 126 / 66; Pulse 99; Resp 20; Temp 100.3(TE); Pulse Ox 97% on 2 lpm NC; tw2 14:22 Weight 90.72 kg (R); Height 5 ft. 6 in. (167.64 cm); tw2 16:33 BP 138 / 77; Pulse 98; Resp 20 S; Pulse Ox 98% on 2 lpm NC; jd3 17:39 BP 130 / 67; Pulse 108; Resp 23 S; Pulse Ox 97% on R/A; jd3 18:06 BP 148 / 70; Pulse 100; Resp 20 S; Temp 98.6(O); Pulse Ox 99% on R/A; jd3 20:55 BP 127 / 79; Pulse 73; Resp 16; Temp 98.5(O); Pulse Ox 99% on R/A; lg3 21:56 BP 227 / 88; Pulse 120; Resp 26; Pulse Ox 99% on Nebulizer Mask; sm5 22:59 BP 159 / 77; Pulse 124; Resp 19; Pulse Ox 98% on BiPAP; [facility] 08/22 00:30 BP 151 / 72; Pulse 126; Resp 19; Pulse Ox 93% ; 5 01:30 BP 121 / 51; Pulse 125; Resp 20; Pulse Ox 99% on BiPAP; [facility] 08/21 14:22 Body Mass Index 32.28 (90.72 kg, 167.64 cm) tw2 ED Course: 08/21 14:06 Patient arrived in ED. rg4 14:20 Triage completed. tw2 14:20 Arm band placed on. tw2 14:40 Vincent Heredia MD is Attending Physician. [facility] 15:06 Bed in low position. Call light in reach. Side rails up X2. Adult w/ patient. tw2 15:32 Jorge Mckeon RN is Primary Nurse. jd3 15:59 Inserted saline lock: 20 gauge in left antecubital area, using aseptic technique. Blood jd3 collected. 16:04 Chest Single View XRAY In Process Unspecified. EDMS 16:26 EKG done, by ED staff, reviewed by Vincent Heredia MD. mb7 16:27 Assisted to bedside commode. mb7 19:12 Ayush Perez PA is PHCP. cp 19:38 XRAY Chest (1 view) In Process Unspecified. EDMS 19:42 Primary Nurse role handed off by Jorge Mckeon RN mw2 19:51 CT Chest For PE Angio In Process Unspecified. EDMS 20:32 Rebeca Abdi, MAR is Primary Nurse. lg3 20:54 Influenza Screen (a \\T\\ B) Sent. lg3 20:54 COVID-19 SARS RT PCR (Document "Date of Onset" if Symptomatic) Sent. lg3 21:06 Attending Physician role handed off by Vincent Heredia MD [facility] 21:06 Ayush Murillo MD is Attending Physician. kenna 22:11 CT Abd/Pelvis - Without Contrast In Process Unspecified. EDMS 23:17 initiated a transfer with Kavitha Peter from [facility] Transfer Center. 2 23:29 connected Ayush COSTA with the Urologist from [facility]. [facility] 08/22 00:30 administrative approval given by Kavitha Peter/ patient has been accepted to [address] 8 B 823/ Dr. Abel accepted the patient in transfer/report to be called to [phone]. 02:02 No provider procedures requiring assistance completed. Patient transferred, IV remains [facility] in place. Administered Medications: 08/21 16:31 Drug: Xopenex (levalbuterol) (3) 1.25 mg Route: Inhalation; jd3 16:31 Drug: SOLU-Medrol (methylPrednisoLONE) 125 mg Route: IVP; Site: left antecubital; jd3 20:54 Follow up: Response: No adverse reaction lg3 16:32 Drug: Acetaminophen 1000 mg Route: PO; jd3 17:30 Follow up: Response: No adverse reaction jd3 19:19 CANCELLED (Physician Discretion): bebtelovimab 1 application IVP Per protocol cp 19:29 Drug: Potassium Effervescent Tablet 50 mEq Route: PO; sm5 20:54 Follow up: Response: No adverse reaction lg3 21:30 Drug: Xopenex (levalbuterol) (3) 1.25 mg Route: Inhalation; 5 21:30 Drug: morphine 2 mg Route: IV; Rate: calculated rate; Site: left antecubital; 5 08/22 00:25 Follow up: Response: No adverse reaction [facility] 08/21 21:47 Drug: NS 0.9% 500 ml Route: IV; Rate: bolus; Site: left antecubital; 5 21:47 Drug: morphine 4 mg Route: IVP; Infused Over: 4 mins; Site: left antecubital; 5 08/22 00:25 Follow up: Response: No adverse reaction [facility] 08/21 21:47 Drug: Zofran (Ondansetron) 4 mg Route: IVP; Site: left antecubital; 5 08/22 00:25 Follow up: Response: No adverse reaction [facility] 08/21 23:25 Drug: NS 0.9% 500 ml Route: IV; Rate: bolus; Site: left antecubital; 5 08/22 00:25 Follow up: IV Status: Completed infusion; IV Intake: 500ml sm5 08/21 23:25 Drug: Rocephin - (cefTRIAXone) 2 grams Route: IVPB; Infused Over: 30 mins; Site: left sm5 antecubital; 08/22 00:25 Follow up: IV Status: Completed infusion; IV Intake: 100ml sm5 00:24 Drug: NS 0.9% (30 ml/kg) 30 ml/kg Route: IV; Rate: bolus; Site: left antecubital; sm5 00:24 Drug: Meropenem 1 grams Route: IV; Rate: calculated rate; Site: left antecubital; sm5 00:24 Not Given (Other Intervention Used): Potassium Chloride 20 mEq IV at calculated rate 5 once; administer over 1-2 hours 00:36 Drug: morphine 4 mg Route: IVP; Infused Over: 4 mins; Site: left antecubital; 5 02:03 Follow up: Response: No adverse reaction 5 01:44 Drug: Tylenol 1000 mg Route: PO; sm5 02:03 Follow up: Response: No adverse reaction 5 Medication: 08/21 15:15 VIS not applicable for this client. tw2 Intake: 08/22 00:25 IV: 100ml; Total: 100ml. sm5 00:25 IV: 500ml; Total: 600ml. 5 Outcome: 08/21 23:11 ER care complete, transfer ordered by MD. sandra 08/22 02:03 Transferred by ground EMS to [facility], Transfer form 5 completed. X-rays sent w/ patient. Condition: stable Instructed on the need for transfer. 02:04 Patient left the ED. 5 Signatures: Dispatcher [employer] EDAyush Rodriguez MD MD cha Rittger, Kevin, MD MD kdr Page, Corey, PA PA Sulema Greenwood, RN RN tw2 Lenore Herndon rgJorge Wilhelm RN RN jd3 Aranza Ayon mw2 Rebeca Adbi RN RN lg3 Gisele Castano mb7 Alicia Vines RN RN 5
--- NOTE | 2021-08-21 23:11 | EDPHYS ---
Physician Documentation [facility] Name: Phyllis Montaño Age: 76 yrs Sex: Female : 1945 Arrival Date: 08/21/2021 Time: 14:06 Bed 8 Private MD: ED Physician Ayush Murillo HPI: 08/21 18:10 This 76 yrs old Unknown Female presents to ER via EMS with complaints of Shortness Of kdr Breath, COVID +. 18:10 The patient has shortness of breath at rest, with light activity. kdr 18:10 Onset: The symptoms/episode began/occurred gradually, 4 day(s) ago. Duration: The kdr symptoms are continuous, and are steadily getting worse. The patient's shortness of breath is aggravated by exertion, light activity, is alleviated by nothing. Associated signs and symptoms: Pertinent positives: chest pain, non-productive cough, fever. Severity of symptoms: At their worst the symptoms were mild moderate just prior to arrival, in the emergency department the symptoms are unchanged. The patient has not experienced similar symptoms in the past. The patient has not recently seen a physician. Patient states that she took a COVID test on Thursday evening and it was positive at home. She has been feeling poorly for a few days prior to that and that is continued to persist and get worse since then.. Historical: - Allergies: 14:21 No Known Allergies; tw2 - Home Meds: 14:21 levothyroxine oral [Active]; Metformin Oral [Active]; tw2 - PMHx: 14:21 Hypothyroidism; hypertension; Diabetes mellitus; tw2 - PSHx: 14:21 LEFT hip replacement; tw2 - Immunization history:: Client reports receiving the 2nd dose of the Covid vaccine. - Social history:: Smoking status: Patient denies any tobacco usage or history of. ROS: 18:10 Constitutional: Negative for weight loss. kdr 18:10 Eyes: Negative for injury, pain, redness, and discharge, Neck: Negative for injury, pain, and swelling, Cardiovascular: Negative for chest pain, palpitations, and edema, Abdomen/GI: Negative for abdominal pain, nausea, vomiting, diarrhea, and constipation, Back: Negative for injury and pain, : Negative for injury, bleeding, discharge, and swelling, MS/Extremity: Negative for injury and deformity, Skin: Negative for injury, rash, and discoloration, Neuro: Negative for headache, weakness, numbness, tingling, and seizure activity. Psych: Negative for depression, anxiety, suicide ideation, homicidal ideation, and hallucinations, Allergy/Immunology: Negative for hives, rash, and allergies, Endocrine: Negative for neck swelling, polydipsia, polyuria, polyphagia, and marked weight changes, Hematologic/Lymphatic: Negative for swollen nodes, abnormal bleeding, and unusual bruising. 18:10 Constitutional: Positive for body aches, fever, malaise, poor PO intake. 18:10 Respiratory: Positive for cough, with no reported sputum, dyspnea on exertion, shortness of breath, at rest. Negative for hemoptysis, orthopnea. Exam: 18:10 Constitutional: This is a well developed, well nourished patient who is awake, alert, kdr and in no acute distress. Head/Face: Normocephalic, atraumatic. Eyes: Pupils equal round and reactive to light, extra-ocular motions intact. Lids and lashes normal. Conjunctiva and sclera are non-icteric and not injected. Cornea within normal limits. Periorbital areas with no swelling, redness, or edema. Neck: Trachea midline, no thyromegaly or masses palpated, and no cervical lymphadenopathy. Supple, full range of motion without nuchal rigidity, or vertebral point tenderness. No Meningismus. Chest/axilla: Normal chest wall appearance and motion. Nontender with no deformity. No lesions are appreciated. Cardiovascular: Regular rate and rhythm with a normal S1 and S2. No gallops, murmurs, or rubs. Normal PMI, no JVD. No pulse deficits. Abdomen/GI: Soft, non-tender, with normal bowel sounds. No distension or tympany. No guarding or rebound. No evidence of tenderness throughout. Back: No spinal tenderness. No costovertebral tenderness. Full range of motion. Skin: Warm, dry with normal turgor. Normal color with no rashes, no lesions, and no evidence of cellulitis. MS/ Extremity: Pulses equal, no cyanosis. Neurovascular intact. Full, normal range of motion. Neuro: Awake and alert, GCS 15, oriented to person, place, time, and situation. Cranial nerves II-XII grossly intact. Motor strength 5/5 in all extremities. Sensory grossly intact. Cerebellar exam normal. Normal gait. Psych: Awake, alert, with orientation to person, place and time. Behavior, mood, and affect are within normal limits. 18:10 Respiratory: mild respiratory distress is noted, Respirations: labored breathing, that is mild, shallow respirations, that is mild, Breath sounds: rales, wheezing: that is mild, is heard diffusely. 18:27 ECG was reviewed by the Attending Physician. kdr 21:48 ECG was reviewed by the Attending Physician. cp Vital Signs: 14:16 BP 126 / 66; Pulse 99; Resp 20; Temp 100.3(TE); Pulse Ox 97% on 2 lpm NC; tw2 14:22 Weight 90.72 kg (R); Height 5 ft. 6 in. (167.64 cm); tw2 16:33 BP 138 / 77; Pulse 98; Resp 20 S; Pulse Ox 98% on 2 lpm NC; jd3 17:39 BP 130 / 67; Pulse 108; Resp 23 S; Pulse Ox 97% on R/A; jd3 18:06 BP 148 / 70; Pulse 100; Resp 20 S; Temp 98.6(O); Pulse Ox 99% on R/A; jd3 20:55 BP 127 / 79; Pulse 73; Resp 16; Temp 98.5(O); Pulse Ox 99% on R/A; lg3 21:56 BP 227 / 88; Pulse 120; Resp 26; Pulse Ox 99% on Nebulizer Mask; sm5 22:59 BP 159 / 77; Pulse 124; Resp 19; Pulse Ox 98% on BiPAP; sm5 08/22 00:30 BP 151 / 72; Pulse 126; Resp 19; Pulse Ox 93% ; sm5 01:30 BP 121 / 51; Pulse 125; Resp 20; Pulse Ox 99% on BiPAP; sm5 08/21 14:22 Body Mass Index 32.28 (90.72 kg, 167.64 cm) tw2 MDM: 08/21 18:10 Data reviewed: vital signs, nurses notes, lab test result(s), radiologic studies. kdr Counseling: I had a detailed discussion with the patient and/or guardian regarding: the historical points, exam findings, and any diagnostic results supporting the discharge/admit diagnosis, lab results, radiology results. 21:06 Patient medically screened. [facility] 23:01 Physician consultation: Matthew Mcclelland MD was called at 22:58, left message on cp voicemail. 23:15 ED course: VS noted. Urology not available for consult. Discussed need for transfer cp with family of patient. [facility] preferred. Will try to accommodate and initiate transfer. 08/22 00:25 Physician consultation: was contacted at 00:20, regarding regarding transfer, to [facility]. cp patient's condition, accepting physician will be DR Handy Correa. 08/21 15:36 Order name: Blood Culture Adult (2) [facility] 08/21 15:36 Order name: CBC with Diff; Complete Time: 17:10 [facility] 08/21 20:19 Interpretation: Normal except: WBC 13.8; HGB 11.5; HCT 35.7; MCV 82.1; MCH 26.4; RDW cp 15.7; SARAN% 86.8; LYM% 5.6; NEUT A 12.0. 08/21 15:36 Order name: CMP; Complete Time: 17:10 [facility] 08/21 20:19 Interpretation: Normal except: NA 132; K 3.1; GLUC 141; GFR 59; AST 8; ALB 3.2; GLOB cp 4.7; A/G 0.7. 08/21 15:36 Order name: Lactate; Complete Time: 17:10 [facility] 08/21 15:36 Order name: Protime (+inr); Complete Time: 17:10 [facility] 08/21 20:20 Interpretation: Reviewed. 08/21 15:36 Order name: Ptt, Activated; Complete Time: 17:10 [facility] 08/21 16:27 Order name: Urine Dipstick-Ancillary; Complete Time: 17:10 EDMS 08/21 20:20 Interpretation: Normal except: UKET 1+; UBLD 3+; UPROT 2+; UESTR Trace. 08/21 17:41 Order name: COVID-19 SARS RT PCR (Document "Date of Onset" if Symptomatic); Complete bd Time: 19:12 08/21 20:28 Order name: COVID-19 SARS RT PCR (Document "Date of Onset" if Symptomatic) 08/21 20:29 Order name: Influenza Screen (a \\T\\ B); Complete Time: 21:43 08/21 21:49 Order name: Urine Microscopic Only; Complete Time: 22:50 08/21 22:51 Interpretation: Normal except: UWBC >50; URBC >50; UBACT >50. 08/21 22:37 Order name: ABG; Complete Time: 23:31 sm5 08/21 22:49 Order name: Urine Culture EDCT 08/21 23:29 Order name: SARS-COV-2 RT PCR; Complete Time: 01:35 EDCT 08/22 01:35 Interpretation: Results reviewed. 08/21 15:36 Order name: Chest Single View XRAY; Complete Time: 17:10 kdr 08/21 19:09 Order name: XRAY Chest (1 view); Complete Time: 20:18 jl7 08/21 20:18 Interpretation: Report review. 08/21 19:20 Order name: CT Chest For PE Angio; Complete Time: 20:18 cp 08/21 20:19 Interpretation: Report reviewed. 08/21 21:44 Order name: CT Abd/Pelvis - Without Contrast; Complete Time: 22:31 cp 08/21 22:19 Order name: BIPAP 08/21 15:36 Order name: Accucheck; Complete Time: 15:38 kdr 08/21 15:36 Order name: Cardiac monitoring; Complete Time: 15:38 kdr 08/21 15:36 Order name: EKG - Nurse/Tech; Complete Time: 16:22 kdr 08/21 15:36 Order name: IV Saline Lock - Large Bore; Complete Time: 15:59 kdr 08/21 15:36 Order name: Labs collected and sent; Complete Time: 15:59 kdr 08/21 15:36 Order name: O2 Per Protocol; Complete Time: 15:38 kdr 08/21 15:36 Order name: O2 Sat Monitoring; Complete Time: 15:38 kdr 08/21 15:36 Order name: Urine Dipstick-Ancillary (obtain specimen); Complete Time: 16:32 kdr 08/21 17:11 Order name: Misc. Order: Ambulate the patient and record vital signs including pulse ox kdr ; Complete Time: 17:39 08/21 20:23 Order name: Misc. Order: ambulate w/o pulse ox; Complete Time: 20:54 cp 08/21 21:23 Order name: EKG; Complete Time: 21:23 cp 08/21 21:23 Order name: EKG - Nurse/Tech; Complete Time: 21:40 cp EC/15 18:27 Rate is 107 beats/min. Rhythm is regular, Sinus tachycardia with No ectopy. QRS [place] is kdr Normal. LA interval is normal. QRS interval is normal. QT interval is normal. Clinical impression: NSR w/ Non-specific ST/T Changes and Sinus tachycardia. 21:48 Rate is 122 beats/min. Rhythm is regular. LA interval is normal. QRS interval is cp normal. QT interval is normal. Interpreted by me. Reviewed by me. Administered Medications: 16:31 Drug: Xopenex (levalbuterol) (3) 1.25 mg Route: Inhalation; jd3 16:31 Drug: SOLU-Medrol (methylPrednisoLONE) 125 mg Route: IVP; Site: left antecubital; jd3 20:54 Follow up: Response: No adverse reaction lg3 16:32 Drug: Acetaminophen 1000 mg Route: PO; jd3 17:30 Follow up: Response: No adverse reaction jd3 19:19 CANCELLED (Physician Discretion): bebtelovimab 1 application IVP Per protocol 19:29 Drug: Potassium Effervescent Tablet 50 mEq Route: PO; sm5 20:54 Follow up: Response: No adverse reaction lg3 21:30 Drug: Xopenex (levalbuterol) (3) 1.25 mg Route: Inhalation; 5 21:30 Drug: morphine 2 mg Route: IV; Rate: calculated rate; Site: left antecubital; [facility] 08/22 00:25 Follow up: Response: No adverse reaction [facility] 08/21 21:47 Drug: NS 0.9% 500 ml Route: IV; Rate: bolus; Site: left antecubital; [facility] 21:47 Drug: morphine 4 mg Route: IVP; Infused Over: 4 mins; Site: left antecubital; [facility] 08/22 00:25 Follow up: Response: No adverse reaction [facility] 08/21 21:47 Drug: Zofran (Ondansetron) 4 mg Route: IVP; Site: left antecubital; 08/22 00:25 Follow up: Response: No adverse reaction [facility] 08/21 23:25 Drug: NS 0.9% 500 ml Route: IV; Rate: bolus; Site: left antecubital; 08/22 00:25 Follow up: IV Status: Completed infusion; IV Intake: 500ml [facility] 08/21 23:25 Drug: Rocephin - (cefTRIAXone) 2 grams Route: IVPB; Infused Over: 30 mins; Site: left sm5 antecubital; 08/22 00:25 Follow up: IV Status: Completed infusion; IV Intake: 100ml 5 00:24 Drug: NS 0.9% (30 ml/kg) 30 ml/kg Route: IV; Rate: bolus; Site: left antecubital; 5 00:24 Drug: Meropenem 1 grams Route: IV; Rate: calculated rate; Site: left antecubital; 5 00:24 Not Given (Other Intervention Used): Potassium Chloride 20 mEq IV at calculated rate [facility] once; administer over 1-2 hours 00:36 Drug: morphine 4 mg Route: IVP; Infused Over: 4 mins; Site: left antecubital; 5 02:03 Follow up: Response: No adverse reaction 5 01:44 Drug: Tylenol 1000 mg Route: PO; 5 02:03 Follow up: Response: No adverse reaction [facility] Disposition Summary: 08/21/21 23:11 Transfer Ordered Transfer Location: [facility] cp Reason: Higher level of care cp Condition: Serious cp Problem: new cp Symptoms: have improved cp Accepting Physician: DR Handy Correa(08/22/21 02:04) 5 Diagnosis - Sepsis, unspecified organism cp - Hydronephrosis with renal and ureteral calculous obstruction cp Forms: - Medication Reconciliation Form cp - SBAR form cp Addendum: 08/23/2021 08:35 Co-signature as Attending Physician, Ayush Murillo MD I agree with the assessment and c casiano plan of care. Signatures: Dispatcher [employer] EDAyush Rodriguez MD MD cha Rittger, Kevin, MD MD kdr Page, Corey, PA PA cp Sulema Hutton, RN RN tw2 Jorge Mckeon RN RN jAlicia Guevara RN RN sm5 Rebeca Abdi RN lg3 Corrections: (The following items were deleted from the chart) 08/21 19:19 19:14 bebtelovimab 1 application IVP Per protocol ordered. cp cp 08/22 00:18 08/21 23:11 Doctor cp 08/22 02:04 00:18 DR Handy Correa [facility]5
[2021-08-21] MEDS ORDERED: NA CHLORIDE 0.9% 100 ML ONE (23:26)
[2021-08-21] MEDS ORDERED: CEFTRIAXONE 2000 MG/VIAL ONE (23:26)
[2021-08-22] MEDS ORDERED: NA CHLORIDE 0.9% 100 ML ONE (00:17)
[2021-08-22] MEDS ORDERED: NA CHLORIDE 0.9% 1,000 ML ONE (00:17)
[2021-08-22] MEDS ORDERED: Meropenem 1000 MG/VIAL IV ONE (00:17)
[2021-08-22] MEDS ORDERED: MORPHINE 4 MG/ML SYR ONE (00:34)
[2021-08-22] MEDS ORDERED: ACETAMINOPHEN 500 MG TAB ONE (01:44)
[2021-08-22 02:25] VITALS: TEMP 98.5
[2021-08-22 02:32] VITALS: BP 121/51; O2SAT 99
--- NOTE | 2021-08-22 15:29 | EKG ---
Test Date: 2021-08-21 Test Time: 21:44:10 [employer] Operator: TODD MEASUREMENT RESULTS: Intervals: Rate: 122 WI: 170 QRSD: 78 QT: 294 QTc: 418 [place]: P: 68 WI: 170 QRS: 83 T: 96 INTERPRETIVE STATEMENTS: Sinus tachycardia Nonspecific ST and T wave abnormality Abnormal ECG Compared to ECG 08/21/2021 16:16:10 ST (T wave) deviation now present Electronically Signed On 08-22-21 15:27:14 CDT by Maximiliano Kolb
--- NOTE | 2021-08-22 15:29 | EKG ---
Test Date: 2021-08-21 Test Time: 16:16:10 [employer]arn Sp[employer] Straightener: MB MEASUREMENT RESULTS: Intervals: Rate: 107 UT: 156 QRSD: 80 QT: 326 QTc: 435 [place]: P: 53 UT: 156 QRS: 67 T: 46 INTERPRETIVE STATEMENTS: Sinus tachycardia Otherwise normal ECG Compared to ECG 08/14/2013 00:43:08 Sinus rhythm no longer present Electronically Signed On 08-22-21 15:27:41 CDT by Maximiliano Kolb
== END 2021-08-22 02:04 | disposition short-term general hospital (02) ==
LOC: ER 14:05
DX: A41.9 Sepsis, unspecified organism (principal); N13.2 Hydronephrosis with renal and ureteral calculous obstruction; E11.9 Type 2 diabetes mellitus without complications; I10 Essential (primary) hypertension; E03.9 Hypothyroidism, unspecified; Z20.822 Contact with and (suspected) exposure to COVID-19
CPT/HCPCS: 96365; 93005 ×2; 87040 ×2; 87088; 85025; 87086; 36415; 87205 ×4; 85610; 83605; 85730; 87077 ×3; 87186 ×3; 80053; 87804 ×2; 71275; 74176; 71045 ×2; 82805; 94660; 96375; 99285; U0003 ×2; Q9967; J2270; J2185; J7040 ×2; J7030; J2930; J2405; J0696; 81003; 81015